=== PATIENT | male | born 1975 | race Hispanic/Latino ===

== ENCOUNTER 2021-08-02 07:47 | Emergency (ER) | payer SELFPAY ==
[2021-08-02] MEDS ORDERED: ONDANSETRON 4 MG/2 ML INJ IV ONE (14:21)
[2021-08-02] MEDS ORDERED: SODIUM CHLORIDE 0.9% 1000 ML 1,000 ML IV ONE (14:21)
--- NOTE | 2021-08-02 14:23 | Emergency Department Report ---
HPI - General Chief Complaint: Syncope Time Seen by Provider: 08/02/21 14:17 - HPI HPI: For the last 3 to 4 days the patient has been experiencing about 6-8 episodes of dark brown diarrhea as well as about 1 or 2 episodes of clear emesis per day. Reports some diffuse abdominal crampy-like pain which is nonradiating and mild. Today had an episode while coming to the emergency department where he got very lightheaded and passed out with brief loss of consciousness preceded by diaphoresis. He denies chest pain shortness of breath focal weakness but does report a mild headache. Nothing makes this better or worse. He is currently tolerating oral fluids. ED Past Medical Hx - Past Medical History Previous Medical History?: No - Surgical History Past Surgical History?: No - Family History Family history: no significant - Social History Smoking Status: Current Every Day Smoker Substance Use Type: None - Medications Home Medications: Home Medications Medication Instructions Recorded Confirmed Last Taken Type Ciprofloxacin HCl [Ciprofloxacin 750 mg PO BID 3 Days #6 08/02/21 Unknown Rx TAB] Esomeprazole Magnesium [NexIUM] 40 mg PO QDAY #10 08/02/21 Unknown Rx Loperamide [Imodium] 2 mg PO Q2HR #12 capsule 08/02/21 Unknown Rx Ondansetron [Zofran Odt] 4 mg PO Q6HR #12 tab.rapdis 08/02/21 Unknown Rx ED Review of Systems ROS: Stated complaint: VOMITTING/SWEATING/PASSING OUT Other details as noted in HPI Comment: All other systems reviewed and negative Physical Exam - Physical Exam Vital Signs: Vital Signs 08/02/21 08/02/21 08/02/21 09:38 13:58 14:00 Temperature 98.7 F 98.5 F 98.5 F Pulse Rate 103 H 79 88 Respiratory 18 20 20 Rate Blood Pressure 122/74 Blood Pressure 114/67 125/76 [Right] O2 Sat by Pulse 94 99 100 Oximetry Physical Exam: Physical Exam: Constitutional: AAOX3. No acute distress. No diaphoresis. HENT: Normocephalic. Pupils equal and reactive. No throat edema or erythema. Neck: No neck rigidity or tenderness. Cardiovascular: Heart sounds: No murmur. Normal rate and regular rhythm. Pulses: Intact distal pulses. Lungs: No wheezing or rales. Chest wall: No tenderness. Abdominal: No distension. No mass/pulsatile mass. No abdominal tenderness, guarding nor rebound. Musculoskeletal: Normal range of motion. No edema, No calf TTP. Skin: Warm and dry. Neurological: Alert and oriented to person, place, and time. Psychiatric: Mood and affect normal. Normal cognition and memory. Normal judgement. ED Course Vital Signs 08/02/21 08/02/21 08/02/21 09:38 13:58 14:00 Temperature 98.7 F 98.5 F 98.5 F Pulse Rate 103 H 79 88 Respiratory 18 20 20 Rate Blood Pressure 122/74 Blood Pressure 114/67 125/76 [Right] O2 Sat by Pulse 94 99 100 Oximetry - Reevaluation(s) Reevaluation #1: 08/02/21 15:48 Patient is feeling better after the fluids that we gave him. His laboratories show him slightly hemoconcentrated with an elevated hemoglobin but the rest of his work-up looks within normal limits. We will send him home on antidiarrheals and antiemetics as well as an antibiotic and a proton pump inhibitor. He will follow-up with the doctor we have provided him more he will return if any other issues arise. ED Medical Decision Making - Lab Data Result diagrams: 08/02/21 14:28 08/02/21 14:28 Critical care attestation.: If time is entered above; I have spent that time in minutes in the direct care of this critically ill patient, excluding procedure time. ED Disposition Clinical Impression: Gastroenteritis Disposition: 01 HOME / SELF CARE / HOMELESS Is pt being admited?: No Does the pt Need Aspirin: No Condition: Stable Instructions: Viral Gastroenteritis, Adult Prescriptions: Ciprofloxacin HCl [Ciprofloxacin TAB] 750 mg PO BID 3 Days #6 Loperamide [Imodium] 2 mg PO Q2HR #12 capsule Esomeprazole Magnesium [NexIUM] 40 mg PO QDAY #10 Ondansetron [Zofran Odt] 4 mg PO Q6HR #12 tab.[email or web address] Referrals: PRIMARY CARE, [Primary Care Provider] - 3-5 Days Print Language: SERBIAN
[2021-08-02 14:56] LABS: Basophils % (Auto) 0.6 % (0.0-1.8); Eosinophils % (Auto) 0.3 % (0.0-4.3); Hematocrit 48.1 % (35.5-45.6); Lymphocytes # (Auto) 1.2 K/mm3 (1.2-5.4); Lymphocytes % (Auto) 23.4 % (13.4-35.0); Mean Corpuscular HGB Conc 35 % (32-34); Mean Corpuscular Volume 91 fl (84-94); Monocytes # (Auto) 0.7 K/mm3 (0.0-0.8); Monocytes % (Auto) 14.7 % (0.0-7.3); Platelet Count 191 K/mm3 (140-440); Red Blood Count 5.29 M/mm3 (3.65-5.03); Red Cell Distribution Width 13.6 % (13.2-15.2)
[2021-08-02 15:12] LABS: Alanine Aminotransferase 50 units/L (7-56); Albumin 4.4 g/dL (3.9-5); BUN/Creatinine Ratio 7; Blood Urea Nitrogen 8 mg/dL (9-20); Calcium 9.2 mg/dL (8.4-10.2); Hemolysis Index 34
[2021-08-02 15:31] VITALS: BP 124/75
--- NOTE | 2021-08-05 19:46 | Electrocardiograph Report ---
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
== END 2021-08-02 16:04 | disposition home or self-care (01) ==
LOC: ED 07:47
DX: K52.9 Noninfective gastroenteritis and colitis, unspecified (principal); F17.200 Nicotine dependence, unspecified, uncomplicated
CPT/HCPCS: 36415; 80053; 83690; 84484; 85025; 93005; 96361; 96374; 99283; J2405; J7030; Q0162